=== PATIENT | male | born 1980 | race Caucasian/White ===

== ENCOUNTER 2019-05-19 16:26 | Emergency (ER) | payer SELFPAY ==
[2019-05-19 17:56] VITALS: BP 122/84
--- NOTE | 2019-05-19 19:19 | UC ---
Complaint Male HPI - HPI Summary HPI Summary: 39-year-old male coming in with a chief complaint of dark urine. The last 2 weeks patient reports when he urinates at the end of his urine stream his urine will be dark in color. Is also some burning with urination at the end of urination stream. Denies any abdominal pain or pelvic pain or flank pain. No fevers or chills. No testicular or scrotal pain. Patient's also been having plantar surface foot pain in the ball of the left foot for couple of weeks. Pains worse with any kind of ambulation. No specific trauma. - History of Current Complaint Chief Complaint: UCGeneralIllness Stated Complaint: URINARY COMPLAINT/FOOT PAIN Time Seen by Provider: 05/19/19 18:55 Pain Intensity: 5 - Allergies/Home Medications Allergies/Adverse Reactions: Allergies Allergy/AdvReac Type Severity Reaction Status Date / Time bee venom protein (honey bee) Allergy Anaphylatic Verified 05/19/19 17:57 Shock Home Medications: Home Medications Ibuprofen TAB* [Advil TAB*] 800 mg PO ONCE 05/19/19 [History Confirmed 05/19/19] PMH/Surg Hx/FS Hx/Imm Hx Previously Healthy: Yes GI/ History: Kidney Stones - Surgical History Surgical History: None - Family History Known Family History: Positive: Non-Contributory - Social History Alcohol Use: None Substance Use Type: None Smoking Status (MU): Heavy Every Day Tobacco Smoker Amount Used/How Often: 1 ppd Review of Systems All Other Systems Reviewed And Are Negative: Yes Constitutional: Positive: Negative Skin: Positive: Negative Eyes: Positive: Negative ENT: Positive: Negative Respiratory: Positive: Negative Cardiovascular: Positive: Negative Gastrointestinal: Positive: Negative Genitourinary: Positive: Other - SEE HPI Motor: Positive: Negative Neurovascular: Positive: Negative Musculoskeletal: Positive: Other: - SEE HPI Neurological: Positive: Negative Psychological: Positive: Negative Is Patient Immunocompromised?: No Physical Exam Triage Information Reviewed: Yes Appearance: Well-Appearing, No Pain Distress, Well-Nourished Vital Signs: Initial Vital Signs Temp 98.8 F 05/19/19 17:49 Pulse 80 05/19/19 17:49 Resp 16 05/19/19 17:49 BP 122/84 05/19/19 17:49 Pulse Ox 100 05/19/19 17:49 Vital Signs Reviewed: Yes Eye Exam: Normal Eyes: Positive: Conjunctiva Clear Neck: Positive: Supple Respiratory: Positive: Lungs clear, Normal breath sounds, No respiratory distress Cardiovascular: Positive: RRR Abdomen Description: Positive: Nontender, Soft. Negative: CVA Tenderness (R), CVA Tenderness (L) Bowel Sounds: Positive: Present Musculoskeletal: Positive: Strength Intact, ROM Intact, Other: - The left foot is tender to palpation over the distal first through third metatarsals into the MTP joints on the plantar surface. The dorsum of the foot is nontender to palpation as normal capillary refill no sensation deficit normal dorsalis pedis pulse. Toes and ankle have full range of motion full-strength. Complaint Male Course/Dx - Course Course Of Treatment: I discussed the urine results with the patient. He does have a high specific gravity and I recommended drinking more water. There is a trace of leukocytes in urine culture is pending at a treat with Bactrim DS by mouth twice a day for 7 days. We did discuss the possibility of a prostatitis and if it is he would need a longer course of antibiotics. He does have some blood in his urine. The plan is to use antibiotics for a week increase by mouth water but also follow-up with urology to ensure complete resolution and investigation of the hematuria. For the foot I recommended arts supports in all should shoes and ice and anti- inflammatories and follow-up with podiatry. I discussed the x-rays with the patient has any fractures radiologist reading is pending. - Differential Dx/Diagnosis Provider Diagnosis: Hematuria, Foot pain, left Discharge - Sign-Out/Discharge Documenting (check all that apply): Patient Departure All imaging exams completed and their final reports reviewed: No - Discharge Plan Condition: Stable Disposition: HOME Prescriptions: Sulfamethox/Trimethoprim DS* [Bactrim DS 800/160 TAB*] 1 tab PO BID #14 tab Patient Education Materials: Urinary Tract Infection in Men (ED), Plantar Fasciitis (ED), Hematuria (ED), Plantar Fasciitis Exercises (ED) Referrals: Italo Zhang MD [Medical Doctor] - Stephane Sheridan MD [Medical Doctor] - Bear LEVINE,Nicho Barth [Doctor of Podiatric Medicine] - Missael Martines DPM [Doctor of Podiatric Medicine] - Additional Instructions: FOLLOW UP WITH UROLOGY AND PODIATRY. GET REEVALUATED SOONER IF WORSE OR ANY QUESTIONS OR CONCERNS. - Billing Disposition and Condition Condition: STABLE Disposition: Home
--- NOTE | 2019-05-20 08:09 | UC ---
- Progress Note Progress Note: xray report left foot : TECHNIQUE: 3 views of the left foot were obtained. FINDINGS: The bones are in normal alignment. No fracture is seen. Joint spaces appear maintained. IMPRESSION: NO EVIDENCE FOR FRACTURE. Course/Dx - Diagnoses Provider Diagnoses: Hematuria, Foot pain, left Discharge - Sign-Out/Discharge Documenting (check all that apply): Patient Departure All imaging exams completed and their final reports reviewed: Yes - Discharge Plan Condition: Stable Disposition: HOME Prescriptions: Sulfamethox/Trimethoprim DS* [Bactrim DS 800/160 TAB*] 1 tab PO BID #14 tab Patient Education Materials: Urinary Tract Infection in Men (ED), Plantar Fasciitis (ED), Hematuria (ED), Plantar Fasciitis Exercises (ED) Referrals: Bear LEVINE,Nicho Barth [Doctor of Podiatric Medicine] - Missael Martines DPM [Doctor of Podiatric Medicine] - Italo Zhang MD [Medical Doctor] - Stephane Sheridan MD [Medical Doctor] - Additional Instructions: FOLLOW UP WITH UROLOGY AND PODIATRY. GET REEVALUATED SOONER IF WORSE OR ANY QUESTIONS OR CONCERNS. - Billing Disposition and Condition Condition: STABLE Disposition: Home
== END 2019-05-19 19:28 | disposition home or self-care (01) ==
LOC: UCCORT 16:26
DX: R31.9 Hematuria, unspecified (principal); R30.0 Dysuria; Z87.442 Personal history of urinary calculi; M79.672 Pain in left foot; Z91.030 Bee allergy status; F17.200 Nicotine dependence, unspecified, uncomplicated
CPT/HCPCS: 81003; 87086; 99202; G0463